=== PATIENT | female | born 1965 | race Caucasian/White ===

== ENCOUNTER 2017-07-18 15:31 | Outpatient (CLI) | payer BC | END 2017-07-18 15:32 | disposition home or self-care (01) | LOC: BICMAMMO 15:31 | PROVIDERS: ATTEND Obstetrics & Gynecology | DX: Z12.31 Encounter for screening mammogram for malignant neoplasm of breast (principal) | CPT/HCPCS: 77063; 77067 ==

== ENCOUNTER 2018-08-16 13:56 | Outpatient (CLI) | payer BC ==
--- NOTE | 2018-08-16 15:14 | BD ---
DEXA BONE DENSITY STUDY: Date: 08/16/18 HISTORY: Postmenopausal. FINDINGS: Lumbar Spine: BMD (g/cm2) L1 0.974 T-Score: -0.1 L2 0.948 T-Score: -0.7 L3 1.055 T-Score: -0.3 L4 0.978 T-Score: -0.8 Total 0.991 T-Score: -0.5 Left Femoral Neck: 0.526 T-Score: -2.9 Total Femur: 0.687 T-Score: -2.1 IMPRESSION: Osteoporosis of the left femoral neck with normal bone mineral density of the lumbar spine. POS: TPC
--- NOTE | 2018-08-17 11:56 | MMO ---
Bilateral MAMMO Bilat Screen [facility]. CLINICAL HISTORY: Patient is 52 years old and is seen for screening. The patient has no family history of breast cancer. The patient has no personal history of cancer. VIEWS: The views performed were: bilateral craniocaudal with tomosynthesis and bilateral mediolateral oblique with tomosynthesis. FILMS COMPARED: The present examination has been compared to prior imaging studies performed at [facility] on 09/11/2006, 10/07/2008, 10/12/2009, 12/20/2010, 01/24/2012, 03/21/2013, 04/29/2014, 06/24/2015, 07/15/2016 and 07/18/2017, and at [facility] [place] on 09/05/2002. MAMMOGRAM FINDINGS: There are scattered fibroglandular densities. There are no suspicious masses, suspicious calcifications, or new areas of architectural distortion. IMPRESSION: THERE IS NO MAMMOGRAPHIC EVIDENCE OF MALIGNANCY. A ROUTINE FOLLOW-UP MAMMOGRAM IN 1 YEAR IS RECOMMENDED. THE RESULTS OF THIS EXAM WERE SENT TO THE PATIENT. ACR BI-RADS Category 1 - Negative MAMMOGRAPHY NOTE: 1. A negative mammogram report should not delay a biopsy if a dominant of clinically suspicious mass is present. 2. Approximately 10% to 15% of breast cancers are not detected by mammography. 3. Adenosis and dense breasts may obscure an underlying neoplasm.
== END 2018-08-16 13:57 | disposition home or self-care (01) ==
LOC: BICMAMMO 13:56
PROVIDERS: ATTEND Family Medicine
DX: Z12.31 Encounter for screening mammogram for malignant neoplasm of breast (principal); Z13.820 Encounter for screening for osteoporosis; M81.0 Age-related osteoporosis without current pathological fracture; M85.80 Other specified disorders of bone density and structure, unspecified site; Z79.890 Hormone replacement therapy
CPT/HCPCS: 77063; 77067; 77080

== ENCOUNTER 2019-09-27 12:47 | Outpatient (CLI) | payer BC ==
--- NOTE | 2019-09-27 13:49 | MMO ---
Bilateral MAMMO Bilat Screen [facility]. CLINICAL HISTORY: Patient is 53 years old and is seen for screening. The patient has no family history of breast cancer. The patient has no personal history of cancer. VIEWS: The views performed were: bilateral craniocaudal with tomosynthesis and bilateral mediolateral oblique with tomosynthesis. FILMS COMPARED: The present examination has been compared to prior imaging studies performed at [facility] on 07/15/2016, 07/18/2017 and 08/16/2018. This study has been interpreted with the assistance of computer-aided detection. MAMMOGRAM FINDINGS: There are scattered fibroglandular densities. There are no suspicious masses, suspicious calcifications, or new areas of architectural distortion. IMPRESSION: THERE IS NO MAMMOGRAPHIC EVIDENCE OF MALIGNANCY. A ROUTINE FOLLOW-UP MAMMOGRAM IN 1 YEAR IS RECOMMENDED. THE RESULTS OF THIS EXAM WERE SENT TO THE PATIENT. ACR BI-RADS Category 1 - Negative MAMMOGRAPHY NOTE: 1. A negative mammogram report should not delay a biopsy if a dominant of clinically suspicious mass is present. 2. Approximately 10% to 15% of breast cancers are not detected by mammography. 3. Adenosis and dense breasts may obscure an underlying neoplasm. Reported by: RENATE LUCAS MD Electonically Signed: [id number]
== END 2019-09-27 12:48 | disposition home or self-care (01) ==
LOC: BICMAMMO 12:47
PROVIDERS: ATTEND Obstetrics & Gynecology
DX: Z12.31 Encounter for screening mammogram for malignant neoplasm of breast (principal)
CPT/HCPCS: 77063; 77067

== ENCOUNTER 2020-09-30 08:00 | Outpatient (CLI) | payer BC | END 2020-09-30 08:01 | disposition home or self-care (01) | LOC: BICMAMMO 08:00 | PROVIDERS: ATTEND Obstetrics & Gynecology | DX: Z12.31 Encounter for screening mammogram for malignant neoplasm of breast (principal); M81.0 Age-related osteoporosis without current pathological fracture | CPT/HCPCS: 77063; 77067; 77080 ==

== ENCOUNTER 2020-10-08 11:00 | Inpatient (IN) | payer BC ==
[2020-10-12 08:48] VITALS: BMI 21.7
[2020-10-13] MEDS ORDERED: Fentanyl 100 MCG/2 ML VIAL ONE ×4 (05:59→09:31)
[2020-10-13] MEDS ORDERED: Lidocaine 2% Jelly 5 ML TUBE ONE (05:59)
[2020-10-13] MEDS ORDERED: Ropivacaine 0.2% HCl/PF 20 ML ONE (05:59)
[2020-10-13] MEDS ORDERED: Phenylephrine 10 MG/ML VIAL ONE (05:59)
[2020-10-13] MEDS ORDERED: Sodium Chloride 0.9% 100 ML ONE (06:10)
[2020-10-13] MEDS ORDERED: Tranexamic Acid 1,000 MG/10 ML VIAL ONE (06:10)
[2020-10-13] MEDS ORDERED: Vancomycin 1 GM/200 ML BAG ONE (06:11)
[2020-10-13] MEDS ORDERED: Midazolam HCl 2 mg/2 ml Vial ONE (06:24)
[2020-10-13] MEDS ORDERED: Lidocaine 1.5% w/Epi 1:200K 30 ML VIAL (Epid Use) ONE (07:10)
[2020-10-13] MEDS ORDERED: Glycopyrrolate 0.2 MG/ML 5 ML SYRINGE ONE (07:10)
[2020-10-13] MEDS ORDERED: PROPOFOL 200 MG/20 ML VIAL ONE (07:10)
[2020-10-13] MEDS ORDERED: Ondansetron PF 4 MG/2 ML Vial ONE (07:10)
[2020-10-13] MEDS ORDERED: Rocuronium Bromide 10 MG/ML (10ML VIAL) ONE (07:10)
[2020-10-13] MEDS ORDERED: Dexamethasone 20 MG/5 ML VIAL ONE (07:10)
[2020-10-13] MEDS ORDERED: Promethazine HCl 25 MG/ML VIAL IM PRN ×3 (07:50→10:44)
[2020-10-13] MEDS ORDERED: HYDROmorphone 2 MG/ML VIAL SLOW IVP PRN (07:50)
[2020-10-13] MEDS ORDERED: Promethazine HCl 25 MG/ML VIAL SLOW IVP PRN (07:50)
[2020-10-13] MEDS ORDERED: Ondansetron HCl/PF 4 MG/2 ML Vial IVP PRN (07:50)
[2020-10-13] MEDS ORDERED: Promethazine HCl 25 MG/ML VIAL ONE (09:06)
[2020-10-13] MEDS ORDERED: Promethazine HCl 25 MG SUPP PR PRN (10:00)
[2020-10-13] MEDS ORDERED: diphenhydrAMINE 25 MG CAP PO PRN ×2 (10:00→10:44)
[2020-10-13] MEDS ORDERED: Naloxone HCl 0.4 mg/ml Vial IVP PRN (10:00)
[2020-10-13] MEDS ORDERED: Bupivacaine 0.25% 10 ML VIAL EPIDURAL PRN (10:00)
[2020-10-13] MEDS ORDERED: fentaNYL Citrate/PF 500 MCG, Bupivacaine 10 ML in Sodium Chloride 0.9% 80 ML EPIDURAL SCH (10:00)
[2020-10-13] MEDS ORDERED: Zolpidem Tartrate 5 MG TAB PO PRN ×2 (10:00→10:44)
[2020-10-13] MEDS ORDERED: traMADol HCl 50 MG TAB PO PRN (10:00)
[2020-10-13] MEDS ORDERED: Naloxone HCl 0.4 mg/ml Vial IV PRN (10:00)
[2020-10-13] MEDS ORDERED: Hydrocerin (Eucerin) Cream 120 gm Jar TOP PRN (10:00)
[2020-10-13] MEDS ORDERED: HYDROcodone/Acetaminophen 5/325 mg Tablet PO PRN (10:00)
[2020-10-13] MEDS ORDERED: Ondansetron PF 4 MG/2 ML Vial IVP PRN ×2 (10:00→10:44)
[2020-10-13] MEDS ORDERED: diphenhydrAMINE 50 MG/ML VIAL IM PRN (10:00)
[2020-10-13] MEDS ORDERED: HYDROcodone/Acetaminophen 10/325 mg Tablet PO PRN ×2 (10:44)
[2020-10-13] MEDS ORDERED: Acetaminophen 325 MG TAB PO PRN (10:44)
[2020-10-13] MEDS ORDERED: Alendronate Sodium 70 mg Tablet PO SCH (10:45)
[2020-10-13] MEDS ORDERED: HYDROmorphone 2 MG/ML VIAL ONE (10:51)
[2020-10-13] MEDS ORDERED: Acetaminophen 325 MG TAB ONE (11:25)
[2020-10-13] MEDS ORDERED: Ketorolac Tromethamine 30 MG/ML VIAL IVP SCH (12:00)
[2020-10-13] MEDS: Sodium Chloride 0.9% 1,000 ML IV SCH ×2 (14:49→18:34)
[2020-10-13] MEDS: CEFAZOLIN 2 GM in Premix Bag 1 BAG IVPB SCH ×2 (16:13→23:48)
[2020-10-13] MEDS: Ketorolac Tromethamine 30 MG/ML VIAL IVP SCH ×2 (16:14→21:27)
[2020-10-13] MEDS ORDERED: PRE FILLED SC SCH (17:15)
[2020-10-13] MEDS ORDERED: METHOTREXATE SODIUM SC SCH (17:15)
[2020-10-13] MEDS: Aspirin 81 mg Enteric Coated Tablet PO SCH (21:27)
[2020-10-13] MEDS: sulfaSALAzine 500 MG TAB PO SCH (21:48)
[2020-10-13] MEDS: diphenhydrAMINE 50 MG/ML VIAL IVP PRN (23:48)
[2020-10-14] MEDS: diphenhydrAMINE 50 MG/ML VIAL IVP PRN ×4 (04:06→20:29)
[2020-10-14] MEDS: Ketorolac Tromethamine 30 MG/ML VIAL IVP SCH ×4 (04:06→21:40)
[2020-10-14] MEDS: Sodium Chloride 0.9% 1,000 ML IV SCH ×2 (04:57→10:38)
[2020-10-14 05:45] LABS: Hemoglobin 10.4 g/dL (12.0-16.0); Mean Corpuscular HGB CONC 33.3 g/dL (32.0-36.0); Mean Corpuscular Hemoglobin 36.1 pg (27.0-31.0); Mean Platelet Volume 6.7 fL (7.4-10.4); Platelet Count 327 thou/uL (130-400); RBC Distribution Width 11.5 % (11.5-14.5); Red Blood Cell (RBC) Count 2.87 mill/uL (4.20-5.40); White Blood Cell (WBC) Count 10.8 thou/uL (4.8-10.8)
[2020-10-14] MEDS ORDERED: ESTRADIOL PO SCH (09:00)
[2020-10-14] MEDS ORDERED: NORGESTIMATE PO SCH (09:00)
[2020-10-14] MEDS: Aspirin 81 mg Enteric Coated Tablet PO SCH ×2 (09:31→20:28)
[2020-10-14] MEDS: sulfaSALAzine 500 MG TAB PO SCH ×2 (09:31→20:41)
[2020-10-14] MEDS: Ferrous Gluconate 324 MG TAB PO SCH ×2 (09:31→20:28)
[2020-10-14] MEDS: FLUoxetine HCl 20 MG CAP PO SCH (09:31)
[2020-10-14] MEDS: Multivitamin W/ Minerals 1 TAB PO SCH (09:31)
[2020-10-14] MEDS: Senokot S 8.6-50 MG TAB PO SCH ×2 (09:31→20:28)
[2020-10-14] MEDS: HYDROcodone/Acetaminophen 5/325 mg Tablet PO PRN (14:56)
[2020-10-14] MEDS ORDERED: Bupivacaine 10 ML in Sodium Chloride 0.9% 90 ML EPIDURAL SCH (16:45)
[2020-10-14] MEDS: traMADol HCl 50 MG TAB PO PRN (23:34)
[2020-10-15] MEDS: HYDROcodone/Acetaminophen 5/325 mg Tablet PO PRN ×3 (00:40→10:13)
[2020-10-15] MEDS: Sodium Chloride 0.9% 1,000 ML IV SCH ×2 (04:00→13:59)
[2020-10-15] MEDS: Ketorolac Tromethamine 30 MG/ML VIAL IVP SCH ×2 (04:31→13:58)
[2020-10-15] MEDS: traMADol HCl 50 MG TAB PO PRN ×2 (07:44→13:36)
[2020-10-15] MEDS: Aspirin 81 mg Enteric Coated Tablet PO SCH (07:46)
[2020-10-15] MEDS: Ferrous Gluconate 324 MG TAB PO SCH (07:46)
[2020-10-15] MEDS: FLUoxetine HCl 20 MG CAP PO SCH (07:46)
[2020-10-15] MEDS: Multivitamin W/ Minerals 1 TAB PO SCH (07:46)
[2020-10-15] MEDS: Senokot S 8.6-50 MG TAB PO SCH (07:46)
[2020-10-15] MEDS: sulfaSALAzine 500 MG TAB PO SCH (10:12)
[2020-10-15 12:55] VITALS: BP 125/75; TEMP 98.4
[2020-10-15] MEDS ORDERED: Ibuprofen 200 MG TAB PO PRN (13:08)
== END 2020-10-15 16:21 | disposition home or self-care (01) | DRG 470 ==
LOC: SURG A 10-13 05:41 → SURG B 10-13 14:28
PROVIDERS: ADMIT Orthopaedic Surgery; ATTEND Orthopaedic Surgery
PROC: 0SR903A Replacement of Right Hip Joint with Ceramic Synthetic Substitute, Uncemented, Open Approach (ICD-10-PCS; principal; 2020-10-13)
DX: M16.11 Unilateral primary osteoarthritis, right hip (principal); M25.451 Effusion, right hip; M25.751 Osteophyte, right hip; F32.9 Major depressive disorder, single episode, unspecified; Z20.822 Contact with and (suspected) exposure to COVID-19; Z87.891 Personal history of nicotine dependence; Z79.899 Other long term (current) drug therapy; Q65.89 Other specified congenital deformities of hip
CPT/HCPCS: 36415; 85027; J0690; J1100; J1170; J1200; J1885; J2001; J2250; J2370; J2405; J2550; J2704; J2795; J3010; J3370; J3490; J9250; Q0163

== ENCOUNTER 2020-10-08 11:07 | Outpatient (CLI) | payer BC ==
[2020-10-08 14:10] LABS: #Eosinphils 0.1 10x3/uL (0.0-0.5); #Monocytes 0.4 10x3/uL (0.0-1.1); #Neutrophils 3.1 10x3/uL (1.5-8.4); %Basophils 0.7 % (0.0-2.0); %Lymphocytes 33.5 % (18.0-47.0); %Monocytes 7.7 % (0.0-10.0); %Neutrophils 55.7 % (40.0-75.0); Hemoglobin 12.2 g/dL (12.0-15.5); Mean Corpuscular HGB CONC 32.2 g/dL (32.0-36.0); Mean Corpuscular Hemoglobin 34.8 pg (27.0-33.0); Mean Platelet Volume 9.3 fl (7.4-10.4); Platelet Count 380 10x3/uL (150-450); Red Blood Cell (RBC) Count 3.51 10x6/uL (3.90-5.03); White Blood Cell (WBC) Count 5.6 10x3/uL (3.5-10.5)
[2020-10-08 14:29] LABS: Bilirubin Neg (Negative); Blood, Urine Negative (Negative); Clarity Clear (Clear); Glucose, Urine (Dipstick) Normal (Negative); Ketone, Urine Negative (Negative); Leukocyte Negative (Negative); Nitrite Negative (Negative); Protein, Urine (Dipstick) Negative (Neg-Trace); Urobilinogen Normal mg/dL (Less than 2)
[2020-10-08 14:37] LABS: INR-International Normal Ratio 0.9; Prothrombin Time 10.1 sec (9.5-12.1)
[2020-10-08 14:43] LABS: Macrocytosis SLIGHT = 6-15 cells (100X) (0-5/hpf); Stomatocytes SLIGHT = 2-5 cells (100X) (0-1/hpf)
[2020-10-08 14:44] LABS: RBC Morphology Normal
[2020-10-08 14:47] LABS: RBC/HPF 0-3 HPF (0-3)
[2020-10-08 14:48] LABS: Bacteria/HPF Rare-Few HPF (None Seen); Calcium Oxalate Crystals 1+ HPF (None Seen); Squamous Epithelial None Seen HPF (0-3); WBC/HPF None Seen HPF (0-3)
[2020-10-08 16:00] LABS: Anion Gap 14 mmol/L (10-20); BUN (Urea Nitrogen) 9 mg/dL (9.8-20.1); Calc. Creatinine Clearance 0 mL/min (70-130); Calcium 9.3 mg/dL (7.8-10.44); Carbon Dioxide 24 mmol/L (22-29); Chloride 105 mmol/L (98-107); Glucose 82 mg/dL (70-105); Potassium 4.2 mmol/L (3.5-5.1); Sodium 139 mmol/L (136-145)
[2020-10-08 21:55] LABS: SARS-CoV-2 PCR by NAA Not Detected (NotDetected)
== END 2020-10-08 11:08 | disposition home or self-care (01) ==
LOC: LABBT 11:07
PROVIDERS: ATTEND Orthopaedic Surgery
DX: Z01.818 Encounter for other preprocedural examination (principal); Z20.822 Contact with and (suspected) exposure to COVID-19; M16.11 Unilateral primary osteoarthritis, right hip
CPT/HCPCS: 80048; 81001; 85025; 85610; 87081; 87635; 93005; 93010; U0003; U0005

== ENCOUNTER 2022-01-18 13:31 | Outpatient (CLI) | payer BC | END 2022-01-18 13:32 | disposition home or self-care (01) | LOC: BICMAMMO 13:31 | PROVIDERS: ATTEND Obstetrics & Gynecology | DX: Z12.31 Encounter for screening mammogram for malignant neoplasm of breast (principal); N64.89 Other specified disorders of breast | CPT/HCPCS: 77063; 77067 ==

== ENCOUNTER 2022-02-09 09:19 | Outpatient (CLI) | payer BC | END 2022-02-09 09:20 | disposition home or self-care (01) | LOC: BICMAMMO 09:19 | PROVIDERS: ATTEND Obstetrics & Gynecology | DX: N64.89 Other specified disorders of breast (principal) | CPT/HCPCS: G0279 ==

== ENCOUNTER 2024-02-15 13:04 | Outpatient (CLI) | payer BC | END 2024-02-15 13:05 | disposition home or self-care (01) | LOC: BICMAMMO 13:04 | PROVIDERS: ATTEND Nurse Practitioner Family | DX: Z12.31 Encounter for screening mammogram for malignant neoplasm of breast (principal) | CPT/HCPCS: 77067 ==

== ENCOUNTER 2025-02-17 13:25 | Outpatient (CLI) | payer BC | END 2025-02-17 13:26 | disposition home or self-care (01) | LOC: BICMAMMO 13:25 | PROVIDERS: ATTEND Nurse Practitioner Family | DX: Z12.31 Encounter for screening mammogram for malignant neoplasm of breast (principal); Z13.820 Encounter for screening for osteoporosis; M85.852 Other specified disorders of bone density and structure, left thigh | CPT/HCPCS: 77063; 77067; 77080 ==